=== PATIENT | female | born 2000 | race Caucasian/White ===

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

== ENCOUNTER 2020-10-05 23:07 | Emergency (ER) | payer BC ==
[~2020-10-05] VITALS: Ht 170.2 cm; Wt 71.2 kg
--- NOTE | 2020-10-05 23:10 | NUR ---
Pt BIB [facility] 88 s/p tonic-clonic seizure lasting 1-2 minutes witnessed by parents that happened at home. Pt A/O x4 clear speech, complete sentences. no SOB or labored breathing, afebrile. No c/o CP/pressure. Denies hitting head/ no KO. Pt states she was able to hear while having seizure. States her last seizure was in June 2019.
--- NOTE | 2020-10-05 23:15 | NUR ---
Dr. Ho at bedside, MSE in progress.
--- NOTE | 2020-10-05 23:16 | NUR ---
Pt placed on seizure precautions. Provided dim lights and quiet environment, decreased stimuli.
[2020-10-05] MEDS ORDERED: levETIRAcetam IV 1,500 MG in IV DEXTROSE 5% 100 ML IV STA (23:29)
[2020-10-05] MEDS ORDERED: METOCLOPRAMIDE HCL 10 MG/2 ML VIAL IV ONE (23:30)
[2020-10-05] MEDS ORDERED: diphenhydrAMINE 50 MG/1 ML VIAL IV ONE (23:30)
[2020-10-05] MEDS ORDERED: ACETAMINOPHEN 325 MG TABLET PO ONE (23:30)
[2020-10-05] MEDS ORDERED: IV NORMAL SALINE 1000 ML BAG IV ONE (23:30)
[2020-10-05] MEDS ORDERED: LEVE500T9 PO ×2 (23:34)
[2020-10-06] MEDS ORDERED: diphenhydrAMINE 50 MG/1 ML VIAL ONE (00:01)
[2020-10-06] MEDS ORDERED: METOCLOPRAMIDE HCL 10 MG/2 ML VIAL ONE (00:01)
[2020-10-06] MEDS ORDERED: ACETAMINOPHEN ES 500 MG TABLET ONE (00:01)
[2020-10-06] MEDS ORDERED: levETIRAcetam 500 MG/5 ML VIAL IV ONE (00:02)
[2020-10-06 00:51] LABS: *URINE HCG, QUAL NEGATIVE (NEGATIVE)
[2020-10-06] MEDS ORDERED: LEVE500T20 PO (01:01)
--- NOTE | 2020-10-06 01:18 | NUR ---
Patient discharged to home in stable condition. A/O x4, no SOB or labored breathing. Afebrile. Denies n/v or dizziness. No DUNCAN. Vitals stable. Written and verbal after care instructions given. Patient verbalizes understanding of instructions. Stressed follow up or return to ER for worsening s/s. Steady gait. Accompanied by mother.
[2020-10-06 01:20] VITALS: BP 112/59
== END 2020-10-06 01:12 | disposition home or self-care (01) ==
LOC: ER 23:08
DX: G40.409 Other generalized epilepsy and epileptic syndromes, not intractable, without status epilepticus (principal); S06.9X0S Unspecified intracranial injury without loss of consciousness, sequela; X58.XXXS Exposure to other specified factors, sequela; G43.909 Migraine, unspecified, not intractable, without status migrainosus
CPT/HCPCS: 84703; 96374; 96375; 99284; J1200; J1953; J2765; J7060; A4663; A9150; J7030